=== PATIENT | male | born 1950 | race Caucasian/White ===

== ENCOUNTER → 2016-08-28 | Outpatient (CLI) | payer OTHER | END | disposition home or self-care (01) | LOC: GMAB 12:32 | PROVIDERS: ATTEND Family Medicine | DX: M25.511 Pain in right shoulder (principal) ==

== ENCOUNTER → 2017-09-05 | Outpatient (CLI) | payer OTHER | LOC: GMAB 12:14 | PROVIDERS: ATTEND Family Medicine | DX: I10 Essential (primary) hypertension (principal); R53.82 Chronic fatigue, unspecified; Z12.5 Encounter for screening for malignant neoplasm of prostate ==

== ENCOUNTER → 2018-05-02 | Outpatient (CLI) | payer OTHER ==
--- NOTE | 2018-05-02 10:01 | CT ---
EXAM DESCRIPTION: Abdomen w/o Contrast CLINICAL HISTORY: 68 years Male, VENTRAL HERNIA WITHOUT OBSTRUCTION OF GANGRENE COMPARISON: None. FINDINGS: 2.[address] scanning through the upper abdomen without contrast Heart size is normal. Lower lungs are clear. In the upper abdomen, unenhanced images of the liver, spleen, pancreas, gallbladder, adrenal glands and kidneys are unremarkable. No hydronephrosis or renal stones. No calcified gallstones. No inflammation around the pancreas. Small hiatal hernia is present. Stomach is otherwise unremarkable. Moderate amount of fecal material in the colon. Small ventral hernia contains omental fat. Lower pelvis is not included on the study. Mid and lower abdominal bowel loops above the pelvic level are unremarkable with no dilatation to suggest obstruction. Ventral hernia defect along the medial aspect of the right rectus abdominis muscle measures approximately nine mm. The herniated fat in the anterior abdominal wall measures approximately 2.7 cm. Additional small ventral bulge of omental fat is seen more inferiorly related to previous supraumbilical surgery. Orthopedic hardware is seen in the lower lumbar spine with previous complete L5 laminectomy. L4 laminectomy. There is leftward degenerative curvature of the lumbar spine. Coronal and sagittal reformatted images confirm the findings. IMPRESSION: Small ventral hernias containing omental fat. No acute upper abdominal process. Degenerative levoscoliosis of lumbar spine. This exam was performed according to our departmental dose-optimization program, which includes automated exposure control, adjustment of the mA and/or kV according to patient size and/or use of iterative reconstruction technique. Electronically signed by: Amador Tripathi MD 05/02/2018 10:00 AM [facility]
== END ==
LOC: CT 07:59
PROVIDERS: ATTEND Family Medicine
DX: K43.9 Ventral hernia without obstruction or gangrene (principal)

== ENCOUNTER 2018-07-18 07:00 | Day surgery (SDC) | payer MEDICARE ==
--- NOTE | 2018-07-16 13:39 | RAD ---
EXAM DESCRIPTION: Chest,2 Views CLINICAL HISTORY: preop surgery COMPARISON: Previous chest x-ray April 30, 2018 TECHNIQUE: PA/lateral FINDINGS: Lungs appear slightly less hyperexpanded than on the previous study. Heart size is normal with normal pulmonary vascularity. No pleural effusion or pneumothorax. Lungs are clear with no consolidating infiltrate. Lateral view shows intact sternum and T-spine. IMPRESSION: No acute process is identified in the chest. Electronically signed by: Amador Tripathi MD 07/16/2018 1:36 PM [facility]
[~2018-07-18 07:00] MED LIST: DEXAMETHASONE INJ 10 MG/ML VIAL ONE; LIDOCAINE 1% 10 ML VIAL INJ ONE; METOCLOPRAMIDE HCL INJ 10 MG/2 ML VIAL ONE; MIDAZOLAM INJ 2 MG/2 ML VIAL ONE; PROPOFOL 200 MG/20 ML VIAL IV ONE; ePHEDrine SULF 50 MG/ML ONE; fentaNYL CITRATE INJ 50 MCG/ML AMP ONE; raNITIdine HCL INJ 25 MG/ML VIAL ONE
[2018-07-18] MEDS ORDERED: SODIUM CHLORIDE 0.9% 100ML 100 ML IVPB ONE (07:20)
[2018-07-18] MEDS ORDERED: LACTATED RINGERS 1,000 ML IVS ONE (07:45)
[2018-07-18] MEDS ORDERED: ceFAZolin SODIUM 1 GM VIAL IVPB ONE (08:11)
[2018-07-18] MEDS ORDERED: BUPIVACAINE 0.25% W/EPI 50 ML VIAL INJ ONE (08:27)
[2018-07-18] MEDS ORDERED: ELECTROLYTE-A 1,000 ML IVS ONE (09:08)
[2018-07-18] MEDS: HYDROmorphone HCL INJ 2 MG/ML VIAL ONE ×3 (10:35→10:55)
[2018-07-18] MEDS ORDERED: HYDROcodone 5MG/APAP 325MG 1 EA TAB ONE (11:24)
--- NOTE | 2018-07-18 11:28 | OP ---
DATE OF PROCEDURE: 07/18/18 PREOPERATIVE DIAGNOSIS: 1. Ventral hernia. POSTOPERATIVE DIAGNOSIS: 1. Ventral incisional hernia. 2. Umbilical hernia. PROCEDURE: 1. Repair of ventral incisional hernia and umbilical hernia. SURGEON: Parker Lund MD. UPPER STITCHER: None. ANESTHESIA: General laryngeal mask anesthesia by Anesthesia and local infiltration of 1% lidocaine with bicarb. INDICATION: The patient is a 68-year-old male who had had some discomfort in his midline. A CT revealed the hernia above umbilicus and one at his umbilicus which was not identified on the original reading of the CT scan. The patient was brought to the Surgical Suite today for repair of same after the risks, benefits and alternatives to the procedure were discussed and accepted. FINDINGS: The patient was found to have a little over 1 cm defect above the umbilicus to the right side of the midline which appeared to be a tear from suture. There were also two very small defects, less than 5 mm, one on the left side just below the one above the umbilicus and there was another one just to the right of the midline above the umbilical defect which was approximately 12 mm in length. All the hernias had preperitoneal fat or omentum. PROCEDURE: After the patient was placed in the supine position with the head of the bed elevated, he underwent general laryngeal mask anesthesia and was then prepped and draped in the usual sterile manner. A surgical time-out was taken noting that he had received perioperative antibiotics. A midline incision was then made involving the previous incision from the umbilicus up and several centimeters above the previous incision. The incision was made first with local infiltration of anesthesia and then a sharp knife. Dissection was then carried down through the skin and subcutaneous tissue to the midline fascia using electrocautery and blunt dissection. Two larger defects were identified. The fatty tissue within them was dissected free and reduced below the level of the fascia. When this was done, the previous scar tissue and subcutaneous fat were dissected free from the midline fascia. The two other smaller defects were identified. They were both closed with a single [id number] of 2-0 Prolene. The two larger defects, when they had been cleaned of subcutaneous fat, were then closed with interrupted [id number] sutures of #1 PDS that were placed sequentially and then tightened and tied sequentially. When these two repairs had been done, the wound was irrigated with saline. All fat was removed. Hemostasis was noted to be adequate. At this point, a 5 by 10 cm piece of Surgimesh with the edges trimmed at the corners was sutured over all of the repairs with interrupted 2-0 Prolene and 2-0 Vicryl sutures. Again, the wound was irrigated with saline. The umbilicus was then sutured down to the deeper aspect of the subcutaneous fat and the subcutaneous tissue was reapproximated with 2-0 and then 3-0 Vicryl sutures. The skin edges were approximated with a skin stapler. A sterile pressure dressing was applied, an abdominal binder was applied and the patient was awakened and taken to the Recovery Room in good and stable condition. Estimated blood loss was less than 75 mL. All sponge, needle and instrument counts were correct. #[id number] [facility]
[2018-07-18 12:28] VITALS: BP 159/73; TEMP 98; O2SAT 96
== END 2018-07-21 12:25 | disposition home or self-care (01) ==
LOC: AMB 07:00
PROVIDERS: ATTEND Surgery
DX: K43.9 Ventral hernia without obstruction or gangrene (principal); K42.9 Umbilical hernia without obstruction or gangrene; N40.0 Benign prostatic hyperplasia without lower urinary tract symptoms; K21.9 Gastro-esophageal reflux disease without esophagitis; I10 Essential (primary) hypertension; Z87.891 Personal history of nicotine dependence; Z79.899 Other long term (current) drug therapy
CPT/HCPCS: 00830; 36416; 49560; 49585; 71046; 80053; 81001; 85025; 93005; C1781; J0690; J1100; J1170; J2250; J2765; J2780; J3010; J3490; J7050; J7120

== ENCOUNTER → 2018-11-06 | Outpatient (CLI) | payer MEDICARE ==
--- NOTE | 2018-11-07 07:53 | MRI ---
Study: MRI of the Left Hip. Indication: PAIN IN LEFT HIP Technique: Multiplanar, multi sequence MRI of the left hip was obtained without intravenous contrast. Comparison: None. Findings: Grade 3 chondral thinning throughout the majority of the left hip joint and most pronounced posteriorly where this likely additional grade 4 chondral loss. No acute fracture or osteonecrosis. Tiny left hip effusion noted. Undersurface tearing of the anterior superior and superior left hip labrum suspected. The bilateral hips are significantly externally rotated. This results in marked narrowing of the bilateral quadratus femoris spaces to less than 3 mm with associated intramuscular edema. These changes can be seen with ischiofemoral impingement. Tendinosis bilateral hamstring tendon origins. Tendinosis bilateral gluteus minimus/medius tendon insertions with mild bilateral greater trochanter bursal edema. No acute high grade pelvic tendon tear. Mild prostatomegaly. Mild circumferential bladder wall thickening. Degenerative and post surgical changes lower lumbar spine. 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 No acute fracture or osteonecrosis. Findings which can be seen with bilateral ischiofemoral impingement. Prostatomegaly and circumferential bladder wall thickening, likely chronic bladder outlet obstruction but nonspecific. Correlation with PSA as well as urinalysis and urine cultures recommended. Additional findings as above. Electronically signed by: Rito Vee MD 11/07/2018 7:51 AM CDT
--- NOTE | 2018-11-07 08:55 | MRI ---
EXAM DESCRIPTION: Lumbar Spine w/o Contrast : Magnetic Resonance Imaging. CLINICAL HISTORY: LOW BACK PAIN COMPARISON: Left hip radiographs 11/06/2018. Sacral radiographs and SI joints 03/11/2018. TECHNIQUE: Multiplanar, multiple standard sequences, non contrast MRI, lumbar spine. FINDINGS: L5-S1: Moderate disc space loss with desiccation of the disc. Posterior tiny midline bulge. Bilateral hypertrophic facet arthrosis and thickening of the flavum ligament more on the left. Moderate to severe stenosis left foramen and borderline right foraminal stenosis. Canal is patent. Posterior bilateral L4-L5 fusion construct with unilateral connecting rods posteriorly. No surrounding edema soft tissue mass or fluid collection. Normal signal in the marrow of the vertebral bodies, taking into account magnetic susceptibility artifact. Posterior decompression at L4 and L5. Interbody fusion device in the L4-L5 disc space. Canal is patent with no fluid or soft tissue mass in the canal. Moderate narrowing of the bilateral foramina. L3-L4: Marked loss of the disc space with hyperintense T2 and STIR signal in the disc space. Posterior endplate osteophyte bulge into the canal. Bilateral hypertrophic facet arthrosis and thickening of the ligaments more severe on the left. AP canal diameter 9 cm. Partial effacement of the left subarticular recess with possible compromise left L4 nerve root. Moderate endplate reactive changes bilaterally more left than right. Minimal anterior soft tissue edema. Left foramen and mild narrowing. Right foraminal stenosis. L2-L3: Severe disc space loss with grade 1 4 mm retrolisthesis. Canal is patent. Advanced spondylosis on the right with disc osteophyte complex encroaching on the right foramen. Moderate narrowing of the left foramen. Mild bilateral facet arthrosis with bilateral ligament thickening. L1-L2: Partial fusion of the anterior and right lateral disc space and severe disc space loss posterior to the left. Moderate to severe narrowing of the right foramen and left foramen is patent. Canal is patent. Circumscribed hyperintense signal lesion in the L1 vertebral body on T1 and T2 sequences consistent with a hemangioma. T12-L1: Minimal disc space loss with desiccation of the disc. Minimal posterior disc bulge. Mild narrowing of the left foramen. Canal and right foramen are patent. Minimal spondylosis on the left side of the disc space. Conus terminates just below the disc space. Lesion in the T11 vertebral body similar appearance to the hemangioma at L1. L1-L4 levoscoliosis. Paravertebral soft tissues minimal edema abutting the L3-L4 endplate. No large soft tissue mass.. Normal marrow signal in the remaining vertebral bodies and the posterior elements. Vertebral bodies are not compressed at any level. IMPRESSION: 1. Severe disc space loss at L3-L4 with fluid signal in the disc space and edematous endplate reactive changes posterior to the left of midline. Grade 1 retrolisthesis. Minimal paravertebral edema. Consider follow-up scan with and without gadolinium IV contrast to evaluate for infectious discitis. Right foraminal stenosis. Mild left paracentral canal stenosis. Osteophyte encroachment on the left subarticular recess with possible compromise left L4 nerve. 2. Posterior bilateral L4-L5 fusion construct with unilateral connecting rods posteriorly. Previous decompression. No canal or foraminal stenosis. No complications. L2-L3 advanced spondylosis on the right with disc osteophyte complex encroaching on the right foramen. 3. Disc space loss and desiccation L5-S1. Moderate to severe stenosis left foramen and borderline mild right foraminal stenosis. Correlate for L5 radiculopathy. 4. Grade 1 retrolisthesis L2-L3. Advanced spondylosis on the right with disc osteophyte complex encroaching on the right foramen. Mild stenosis. Possible compromise right L2 nerve. 5. L1-L2: Partial fusion of the anterior right lateral disc space and severe disc space posterior and left. Moderate to severe narrowing of the right foramen with possible compromise right L1 nerve. Electronically signed by: Donald Jules MD 11/07/2018 8:53 AM CDT
== END ==
LOC: MRI 10:07
PROVIDERS: ATTEND Family Medicine
DX: M94.252 Chondromalacia, left hip (principal); M51.37 Other intervertebral disc degeneration, lumbosacral region; M47.896 Other spondylosis, lumbar region; M48.062 Spinal stenosis, lumbar region with neurogenic claudication; M43.16 Spondylolisthesis, lumbar region; N40.0 Benign prostatic hyperplasia without lower urinary tract symptoms; Z98.1 Arthrodesis status

== ENCOUNTER → 2018-11-12 | Outpatient (CLI) | payer MEDICARE ==
--- NOTE | 2018-11-12 17:10 | MRI ---
EXAM DESCRIPTION: Lumbar Spine w/wo Contrast: Magnetic Resonance Imaging. CLINICAL HISTORY: Low back pain. Evaluate for discitis versus severe spondylosis L3-L4. COMPARISON: None Available. TECHNIQUE: Multiplanar, MRI, multiple standard sequences, without and with standard dose Gadolinium IV contrast, lumbar spine. No adverse reactions. FINDINGS: L3-L4: Again noted is marked disc space loss with hyperintense signal in the disc space, before contrast. Marked endplate reactive changes in the mid disc space and to the right of midline along with hypertrophy of the left facet and ligaments. After IV gadolinium was given, no abnormal enhancement in the endplates or the disc space. No paravertebral enhancement. Normal enhancement in the thecal sac. Canal and foraminal stenosis is again noted. No abnormal contrast enhancement in the bone or soft tissues around the posterior fusion construct. No abnormal contrast enhancement in the thecal sac or foramina at any level. No abnormal contrast enhancement in the other disc spaces with spondylosis of the endplates at some levels showing minimal enhancement. Variable enhancement in the hemangiomas seen on the prior study. IMPRESSION: 1. No MRI evidence of discitis at the L3-L4 level without and with gadolinium IV contrast. Minimal contrast enhancement at some levels from the spondylosis. 2. No abnormal enhancement around the fusion construct hardware and bony structures. No abnormal enhancement in the spinal canal. Electronically signed by: Donald Jules MD 11/12/2018 5:08 PM CDT
== END ==
LOC: MRI 11:00
PROVIDERS: ATTEND Family Medicine
DX: M47.896 Other spondylosis, lumbar region (principal); I10 Essential (primary) hypertension

== ENCOUNTER → 2019-01-14 | Outpatient (CLI) | payer MEDICARE | LOC: GMAE 14:30 | PROVIDERS: ATTEND Family Medicine | DX: N40.0 Benign prostatic hyperplasia without lower urinary tract symptoms (principal) ==

== ENCOUNTER → 2019-01-30 | Outpatient (CLI) | payer MEDICARE ==
--- NOTE | 2019-01-31 11:51 | RAD ---
EXAM DESCRIPTION: Pelvis: CR/DR/XR CLINICAL HISTORY: LEFT HIP PAIN COMPARISON: Pelvis radiographs on the same visit. MRI lumbar spine November 12, 2018. TECHNIQUE: One view FINDINGS: No fracture dislocation. Decreased bone density. No left hip joint space narrowing or dislocation. Symmetric bilaterally. Range of motion unremarkable. No abnormal radiodense objects in the soft tissues or joint spaces. Vascular clips in the soft tissues overlying the upper medial left thigh. Posterior fusion construct lower lumbar spine. IMPRESSION: Decreased bone density. Bilateral hip joints appear symmetric. No acute bony or joint margin abnormality. Electronically signed by: Donald Jules MD 01/31/2019 11:49 AM CDT
--- NOTE | 2019-01-31 11:52 | RAD ---
EXAM DESCRIPTION: Left hip: CR/DR/XR CLINICAL HISTORY: LEFT HIP PAIN COMPARISON: Pelvis radiographs on the same visit. MRI lumbar spine November 12, 2018. TECHNIQUE: One view FINDINGS: No fracture dislocation. Decreased bone density. No left hip joint space narrowing or dislocation. Symmetric bilaterally. Range of motion unremarkable. No abnormal radiodense objects in the soft tissues or joint spaces. Vascular clips in the soft tissues overlying the upper medial left thigh. Posterior fusion construct lower lumbar spine. IMPRESSION: Decreased bone density. Bilateral hip joints appear symmetric. No acute bony or joint margin abnormality. Electronically signed by: Donald Jules MD 01/31/2019 11:50 AM CDT
== END ==
LOC: RAD 11:22
PROVIDERS: ATTEND Orthopaedic Surgery
DX: M25.552 Pain in left hip (principal); M85.88 Other specified disorders of bone density and structure, other site

== ENCOUNTER → 2019-07-22 | Outpatient (CLI) | payer MEDICARE | DX: Z13.89 Encounter for screening for other disorder (principal) ==

== ENCOUNTER → 2019-11-13 | Outpatient (CLI) | payer MEDICARE ==
--- NOTE | 2019-11-12 16:11 | RAD ---
EXAM DESCRIPTION: Lumbar Spine 5 Views CLINICAL HISTORY: 69 years Male, SACROILIITIS COMPARISON: None. Findings: Five view(s)/radiograph(s) Five nonrib-bearing vertebral bodies. L4/L5 posterior construct with interbody fusion. Solid osseous bridging. No abnormal translational motion. No acute fracture or subluxation. Marked multilevel degenerative disc disease. Atherosclerotic disease. Moderate leftward curvature of the lumbar spine apex at L2. Osteopenia. No abnormal translational motion. IMPRESSION: Postoperative lumbar spine. No hardware complication. Multilevel acquired degenerative changes of the lumbar spine. No acute fracture or subluxation. Electronically signed by: Jose Manuel Cid MD 11/12/2019 4:10 PM CDT
--- NOTE | 2019-11-13 09:59 | MRI ---
EXAM DESCRIPTION: Lumbar Spine w/o Contrast : Magnetic Resonance Imaging. CLINICAL HISTORY: SACROILIITIS COMPARISON: MRI lumbar spine with and without gadolinium IV contrast October and November 2018. TECHNIQUE: Multiplanar, multiple standard sequences, non contrast MRI, lumbar spine. FINDINGS: L5-S1: The disc is well visualized on axial T2 series 501, image 3. Moderate disc space loss hypertrophic changes in the facet joints and posterior flavum ligaments (canal elements). Prior partial decompression. Minimal flattening of the left subarticular recess. Borderline right foraminal stenosis and advanced left foraminal stenosis. No change from the prior study. Again noted is bilateral posterior transpedicular L4-L5 fusion construct. Interbody fusion device. No abnormal soft tissue edema or fluid collections around the hardware. No interval change from the prior study. Posterior decompression and canal patent. Partial fusion of facet joints. Moderate right foraminal narrowing and moderate to severe left foraminal narrowing. L3-L4: Severe disc space loss and endplate reactive changes advanced in the midline into the left of midline. 6.5 mm grade 1 retrolisthesis of the disc remnant and inferior L3 spur. Moderate hypertrophic changes in the canal elements more on the left. AP canal diameter 8.5 mm. Effacement of the left subarticular recess with compromise of the left L4 nerve. Narrowing right subarticular recess. Severe right foraminal stenosis and borderline left foraminal stenosis. This has progressed since the prior study. L2-L3: Severe disc space loss with endplate reactive changes in the midline into the right of midline. Disc osteophyte complex encroachment on the right foramen with stenosis and possible compromise right L2 nerve. Grade 1 Retrolisthesis 4.5 mm. Disc remnant and spur encroaching on the canal. Bilateral subarticular recess narrowing or stenosis with possible compromise bilateral L3 nerves. Mild hypertrophic changes in the canal elements with no canal stenosis. Severe left foraminal narrowing. L1-2 again noted is severe disc space loss and fusion of the disc space to the right of midline and anterior. Trace anterolisthesis. Minimal anterior height loss L2 vertebral body. Mild hypertrophic changes canal elements. Right foraminal stenosis has progressed since the prior study with mild left foraminal narrowing. Circumscribed hyperintense T1 and T2 hemangioma in the L1 vertebral body and in the T11 vertebral body. T12-L1: Disc space loss with endplate reactive changes mostly in the midline into the left of midline. Anterior and posterior endplate bulging along with the disc. Moderate to severe left foraminal narrowing with mild to moderate right foraminal narrowing. Conus terminates at this level. L1-L4 levoscoliosis again noted. Paravertebral soft tissues surgical changes inferiorly with possible atrophy at other levels. Possible cyst left kidney.. Distal cord normal signal and caliber. Otherwise normal marrow signal in the remaining vertebral bodies and the posterior elements. Vertebral bodies are not compressed at any level.. 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 IMPRESSION: 1. Posterior transpedicular spinal fusion bilaterally L4-L5, stable position and alignment with no complications. 2. Severe right foraminal stenosis and borderline left foraminal stenosis at L3-L4 has progressed since the prior study. 3. Bilateral Subarticular recess severe narrowing/stenosis at L2-L3 with possible compromise of the bilateral L3 nerves has progressed since the prior study. Right foraminal stenosis and encroachment on the right L2 nerve has progressed since the prior study. 4. Right foraminal stenosis at L1-L2 has progressed since the prior study. Electronically signed by: Donald Jules MD 11/13/2019 9:57 AM CDT
== END ==
LOC: MRI 14:00
PROVIDERS: ATTEND Family Medicine Sports Medicine
DX: M46.1 Sacroiliitis, not elsewhere classified (principal); M47.896 Other spondylosis, lumbar region; Z98.1 Arthrodesis status; M48.061 Spinal stenosis, lumbar region without neurogenic claudication

== ENCOUNTER 2019-12-16 11:06 | Emergency (ER) | payer MEDICARE ==
--- NOTE | 2019-12-16 13:01 | ED.PDOC ---
History of Present Illness - General Chief Complaint: Bite: Animal/Insect/Human Time Seen by Provider: 12/16/19 11:19 Source: patient Exam Limitations: no limitations - History of Present Illness Initial Comments: Got bitten today on R shoulder in his [place]. HE DID NOT SEE THE INSECT AND AT FIRST IT JUST FELT LIKE A SPLINTER. NO BITE JORGENSEN VISIBLE AT THE TIME. HE STARTED SENSING A NUMBNESS OF HIS TONGUE, LIPS, AND TEETH AND FELT SLIGHTLY LIGHT HEADED. NO SOB. Timing/Duration: 1-3 hours Severity: moderate Improving Factors: nothing Worsening Factors: nothing Associated Symptoms: denies symptoms Allergies/Adverse Reactions: Allergies NO KNOWN ALLERGY Allergy (Verified 12/16/19 11:25) Home Medications: Ambulatory Orders Amlodipine Besylate 5 mg PO DAILY 07/16/18 Finasteride [Proscar] 5 mg PO DAILY 07/16/18 Lisinopril 20 mg PO DAILY 07/16/18 Rosuvastatin Calcium [Crestor] 10 mg PO DAILY 07/16/18 Pantoprazole Sodium 40 mg PO DAILY 12/16/19 Review of Systems - Review of Systems Constitutional: Denies: chills, fever EENTM: Denies: eye pain, blurred vision, ear pain, nose pain, throat pain, throat swelling, mouth pain, mouth swelling Respiratory: Denies: cough, short of breath Cardiology: Denies: chest pain, palpitations Gastrointestinal/Abdominal: Denies: abdominal pain, nausea, vomiting Genitourinary: States: no symptoms reported Musculoskeletal: Denies: back pain, joint pain, joint swelling, muscle pain, muscle stiffness, neck pain Skin: Denies: change in color, lesions, rash Neurological: States: tingling - TINGLING OF MOUTH, PER HPI. . Denies: h eadache, numbness, tremors, weakness Endocrine: Denies: excessive sweating, flushing Hematologic/Lymphatic: Denies: easy bleeding, easy bruising, swollen glands All other Systems: Reviewed and Negative Past Medical History (General) - Patient Medical History Hx Seizures: No Hx Stroke: No Hx Dementia: No Hx Asthma: No Hx of COPD: No Hx Cardiac Disorders: No Hx Congestive Heart Failure: Yes Hx Pacemaker: No Hx Hypertension: Yes Hx Thyroid Disease: No Hx Diabetes: No Hx Renal Disease: No Hx Cancer: No Hx Hepatitis C: No Hx MRSA: No Surgical History: no surgical history - Vaccination History Hx Tetanus, Diphtheria Vaccination: Yes Hx Influenza Vaccination: Yes Hx Pneumococcal Vaccination: Yes - Social History Hx Tobacco Use: Yes Hx Alcohol Use: No - Female History Patient is a Female of Child Bearing Age (10 -59 yrs old): No Family Medical History - Family History Mother Family History: Unknown Living Status: Unknown Physical Exam - Physical Exam General Appearance: Alert, No apparent distress Eye Exam: bilateral normal Ears, Nose, Throat: hearing grossly normal, normal ENT inspection Neck: non-tender, full range of motion Respiratory: lungs clear, normal breath sounds Cardiovascular/Chest: normal peripheral pulses, regular rate, rhythm, no JVD Peripheral Pulses: radial,right: 2+, radial,left: 2+ Gastrointestinal/Abdominal: normal bowel sounds, non tender, soft, no organomegaly Back Exam: normal inspection, no vertebral tenderness Extremity: normal range of motion, non-tender, normal inspection, no pedal edema, no calf tenderness 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 Lymphatic: no adenopathy Progress - Results/Orders Results/Orders: PT WAS CONCERNED IT WAS A BLACK BITE, HOWEVER HE HAS NO CLASSIC SX (NO TREMOR, WEAKNESS, MUSCLE PAIN, ABD PAIN, N/V, MASSEY). HE HAD PERIORAL PERISTHESIAS (BUT NO RESPIRATORY COMPROMISE/SX). HE WAS OBSERVED IN ED OVER 1 HR AND HIS PERIORAL SX RESOLVED, THUS SAFE FOR DC TO HOME. RETURN PRECAUTIONS GIVEN. - EKG/XRAY/CT CT Ordered: No CT Interpretation Call Back: No Departure - Departure Clinical Impression: Numbness around mouth Insect bite of shoulder, right Qualifiers: Encounter type: initial encounter Qualified Code(s): S40.261A - Insect bite (nonvenomous) of right shoulder, initial encounter Disposition: Discharge to Home or Self Care Condition: Good Departure Forms: ED Discharge - Pt. Copy, Patient Portal Self Enrollment Instructions: DI for Animal Bites Diet: resume usual diet Activity: increase activity as tolerated Referrals: TICO HALEY MD [Primary Care Provider] - 1-2 Weeks Home Medications: Ambulatory Orders Amlodipine Besylate 5 mg PO DAILY 03/05/19 Finasteride [Proscar] 5 mg PO DAILY 07/16/18 Lisinopril 20 mg PO DAILY 07/16/18 Rosuvastatin Calcium [Crestor] 10 mg PO DAILY 07/16/18 Pantoprazole Sodium 40 mg PO DAILY 12/16/19 Additional Instructions: Please return to the ER if you start noticing any new symptoms, especially any difficulty breathing.
[2019-12-16 13:08] VITALS: BP 145/86; TEMP 98.1; O2SAT 97
== END 2019-12-16 13:08 | disposition home or self-care (01) ==
LOC: ER 11:06
DX: S40.261A Insect bite (nonvenomous) of right shoulder, initial encounter (principal); R20.0 Anesthesia of skin; I50.9 Heart failure, unspecified; I11.0 Hypertensive heart disease with heart failure; Z79.899 Other long term (current) drug therapy; Y92.71 Barn as the place of occurrence of the external cause